=== PATIENT | female | born 1970 | race Caucasian/White ===

== ENCOUNTER 2017-01-07 10:23 | Emergency (ER) | payer BC ==
--- NOTE | 2017-01-10 11:23 | NUR ---
SAD person referral. Pt went to [facility].
--- NOTE | 2017-01-12 15:21 | ER ---
ADMIT: 01/07/2017 RM/LOC: ER [facility] MR#: [id number] [id number] [place] [address] Emergency Room Report SEX: F AGE: 47 : 1970 DATE: 01/07/2017 HISTORY OF PRESENT ILLNESS: The patient is a 47-year-old female, presents to the emergency room with headache. She has been tweaking her mental health medications on her own and says is getting a little anxious, feels like she is getting manic. Blood pressure is 150/85 with a pulse of 109, respirations 18. MEDICATIONS: 1. Seroquel. 2. Amitriptyline. ALLERGIES: SHE IS ALLERGIC TO REGLAN. PAST MEDICAL HISTORY: She has a history of hypertension, diabetes, bipolar, high cholesterol, hysterectomy, migraines. PHYSICAL EXAMINATION: GENERAL: A very pleasant female, alert, oriented, very coherent. RESPIRATIONS: No distress. CVS: Tachycardic. ABDOMEN: Nontender. SKIN: Good color and turgor. NEURO: Cranial nerves II through XII normal. LABORATORY AND X-RAY DATA: Labs done to rule out pathology. CBC normal. Chemistry normal except for glucose of 176, calcium 10.5, TSH 0.956. As I had this therapy going for her headache which included IV fluids, Ativan, Toradol, and Phenergan, she contacted Dr. Bell and told her that she wanted to get some committal to mental health facility. I contacted Dr. Bell back to verify this fact and we are arranging for her to go to [facility]. Her headache is controlled at 1410 hours. She is comfortably relaxed and waiting for complete discharge. GAYE Guzman / Jamie Balderas MD / modl JOB #: [id number] CC: Jamie Balderas MD, Attending Physician Roxie Bell MD, Family Physician
== END 2017-01-07 15:54 ==
LOC: ER 10:23
DX: R51 Headache (principal); F41.9 Anxiety disorder, unspecified; I10 Essential (primary) hypertension; E11.9 Type 2 diabetes mellitus without complications; F31.9 Bipolar disorder, unspecified; E78.00 Pure hypercholesterolemia, unspecified; Z90.710 Acquired absence of both cervix and uterus; Z79.84 Long term (current) use of oral hypoglycemic drugs; Z79.899 Other long term (current) drug therapy; Z88.8 Allergy status to other drugs, medicaments and biological substances